=== PATIENT | male | born 1970 | race Caucasian/White ===

== ENCOUNTER 2019-03-30 07:06 | Outpatient (CLI) | payer OTHER, SELFPAY ==
[2019-03-30 07:32] LABS: HCT 45.6 % (40.0-50.0); HGB 15.6 g/dL (13.5-17.5); Mean Corp. HGB Concentration 34.2 g/dL (32.0-36.0); Mean Corpuscular Hemoglobin 31.8 pg (27.0-33.0); Mean Corpuscular Volume 92.9 fL (80-95); Mean Platelet Volume 11.4 fL (8.0-11.0); Platelet Count 259 x1000/uL (130-400); RBC 4.91 m/cumm (4.50-6.00); RBC Distribution Width 12.7 % (11.8-14.1); White Blood Cell Count 6.23 k/cumm (4.4-10.8)
[2019-03-30 08:13] LABS: ALT 77 U/L (16-63); AST 36 U/L (15-37); Albumin 3.6 g/dL (3.4-5.0); Alkaline Phosphatase 105 U/L (46-116); BUN 14 mg/dL (7-18); Bilirubin, Total 0.5 mg/dL (0.2-1.0); CREATININE 1.17 mg/dL (0.70-1.30); Calcium 8.8 mg/dL (8.5-10.1); Calculated LDL 138 mg/dL; Chloride 104 mmol/L (98-107); Cholesterol 219 mg/dL (50-200); Glucose 105 mg/dL (70-100); HDL Cholesterol 62 mg/dL (40-60); Potassium 4.4 mmol/L (3.5-5.1); Sodium 141 mmol/L (136-145); Triglyceride 97 mg/dL (30-150)
== END 2019-03-30 07:26 ==
PROVIDERS: PCP Nurse Practitioner; Visit Provider Nurse Practitioner
DX: E66.3 Overweight (principal); Z13.220 Encounter for screening for lipoid disorders; Z82.49 Family history of ischemic heart disease and other diseases of the circulatory system
CPT/HCPCS: 36415; 80053; 80061; 85027

== ENCOUNTER 2019-06-12 09:13 | Day surgery (SDC) | payer OTHER, SELFPAY ==
--- NOTE | 2019-06-12 06:51 | W.COLOREPORT ---
Date of service: 06/12/19 Time of Service: 10:25 Colonoscopy Report Date of procedure: 06/12/19 Pre-op diagnosis general: Colon CAncer Screening and Family history of colon cancer Post-op diagnosis procedure note: same Procedure: Colonoscopy Surgeon: Melody Salmeron Anesthesia proc note operative: other (General/ ASA 2/Jose Baron CRNA) Estimated blood loss (mL): 0 Pathology: none sent Complications: None Disposition: same day Indications: The patient is here for Colonoscopy pre-op. His last screening was 11 years ago, which was unremarkable. He reports a family history of colon cancer in his grandmother at the age of 50 and a cousin at the age of 38 whom is now . He has not had any bowel habit changes. -Discussed colonoscopy bowel prep as well as the procedure. Discussed possible complications of the procedure to include bleeding, pain, perforation, missed small lesion/polyp, sore throat, aspiration and adverse reaction to the medications. Questions were answered to patient?s satisfaction. No guarantees were implied or given. Prep: Miralax/Dulcolax Procedure Start Time: 10:25 Procedure End Time: 10:50 Retraction Time: 18 minutes Findings: Normal colon Procedure Description: After informed consent was obtained the patient was taken to the procedure room and placed in a left decubitous position. Monitors were applied and a time out was done. The patients name, date of , procedure, allergies to medications and metal in their body was reviewed. The patient was then sedated. Once sedated and comfortable a rectal exam was done. External exam was normal. Internal exam revealed a normal sphincter tone and no palpable masses. The prostate felt smooth. The scope was then introduced and retro-flexed. No internal hemorrhoids were identified. The scope was then advanced to the cecum without difficulty. The TI and appendiceal orifice were identified. The prep was adequate. The scope was then slowly retracted over 18 minutes back into the rectum. There were no polyps and no diverticula. The scope was removed and the patient was woken up and taken back to Same day surgery in stable condition. The patient tolerated the procedure well and there were no immediate complications. Follow up: The patient should follow up in 5 years unless they develop changes in bowel habits or other new gastrointestinal complaints.
--- NOTE | 2019-06-12 06:53 | W.PM.DSUDISC ---
Discharge Plan Disposition Patient Disposition: HOME Condition: Good Discharge Details Reason For Visit: Colon cancer Screening Attending Provider: Melody Salmeron Primary Care Provider: Kae Clifford Home Meds and New Rx's Prescriptions: Continued codeine-guaifenesin 10-100 mg/5 mL liquid 10 ml PO Q6H PRN (Reason: cough) Qty: 118 RF: 0 Discontinued polyethylene glycol 3350 17 gram/dose powder 238 g PO ONCE Qty: 238 RF: 0 bisacodyl [Dulcolax (bisacodyl)] 5 mg tablet,delayed release (DR/EC) 5 mg PO ONCE Qty: 4 RF: 0 Discharge Instructions Instructions: Colonoscopy (DC) Additional Instructions: Findings: Normal Follow up: 5 years Please call if you develop: fevers >101.5 Nausea or Vomiting Abdominal pain that is not transient DAY SURGERY UNIT POST ENDOSCOPY INSTRUCTIONS 1. Because there will be medication in your system for the next 24 hours, you may feel a little sleepy. Your coordination will be affected. Therefore: a. Do not drive or operate dangerous equipment for 24 hours. b. Do not drink alcohol beverages for 24 hours (not even beer). c. Plan to go home and rest for the day. 2. Generally there are no restrictions on your activity after a day or so has gone by, but you may feel a bit fatigued for a few days. 3 After you arrive home you may have a light meal and return to a normal diet as you can tolerate it without feeling sick to your stomach. 4. After surgery, you may feel pain or discomfort. This should be only transient, but if it persists please contact your doctor. 5. If there are any questions regarding the findings of your procedure, please feel free to contact your doctor. 6. If you are unable to contact your doctor with a problem, contact the hospital at [phone]. 7. Continue all your regular medications unless directed otherwise. I understand the above instructions and have no questions. Signature of Patient or Responsible Adult Escort Date/Time Name of Responsible Adult Escort Signature of Nurse Date/Time Activity:: Activity as Tolerated Diet:: As Tolerated Discharge Orders Discharge Orders: Discharge Order (Routine); Ordered 06/12/19 Ordered By: Melody Salmeron DS: Diagnosis Discharge Diagnosis (1) S/P colonoscopy: Status: Acute
[2019-06-12 09:27] VITALS: BP 122/77; PULSE 84; RESP 18; TEMP 36.1; O2SAT 99
[2019-06-12] MEDS: Lactated Ringers 1,000 ML 80 ML IV (09:49)
[2019-06-12 11:31] VITALS: BP 101/63; PULSE 97; RESP 18; TEMP 36.7; O2SAT 96
== END 2019-06-12 12:31 | disposition home or self-care (01) ==
LOC: SUR 09:14
PROVIDERS: PCP Nurse Practitioner; Visit Provider Surgery
PROC: 0DJD8ZZ Inspection of Lower Intestinal Tract, Via Natural or Artificial Opening Endoscopic (ICD-10-PCS; CPT 45378; principal; 2019-06-12 10:15)
DX: Z12.11 Encounter for screening for malignant neoplasm of colon (principal); Z80.0 Family history of malignant neoplasm of digestive organs
CPT/HCPCS: 45378

== ENCOUNTER 2020-07-04 02:02 | Outpatient (CLI) | payer OTHER, SELFPAY ==
[2020-07-05 14:41] LABS: COVID-19 RT-PCR UVMMC Result Negative (Negative)
== END 2020-07-04 02:22 ==
PROVIDERS: PCP Nurse Practitioner; Visit Provider Internal Medicine Cardiovascular Disease
DX: Z11.59 Encounter for screening for other viral diseases (principal); Z01.810 Encounter for preprocedural cardiovascular examination
CPT/HCPCS: U0003

== ENCOUNTER 2020-07-12 03:04 | Outpatient (CLI) | payer OTHER, SELFPAY ==
[2020-07-13 16:50] LABS: COVID-19 RT-PCR Result NEGATIVE (Negative)
== END 2020-07-12 03:24 ==
PROVIDERS: PCP Nurse Practitioner; Visit Provider Internal Medicine Cardiovascular Disease
DX: Z11.52 Encounter for screening for COVID-19 (principal); Z01.810 Encounter for preprocedural cardiovascular examination
CPT/HCPCS: U0003

== ENCOUNTER 2020-07-17 01:47 | Outpatient (CLI) | payer OTHER, SELFPAY ==
--- NOTE | 2020-07-17 09:00 | ETT_ITS ---
APPROVED REPORT Exam: Exercise Treadmill Patient Location: Out-Patient Room/Bed: Stress Nurse: Elise Rivera RN Ordering Provider:ONIEL GARCÍA, Contact Number: [phone] BMI: 29.96 Baseline Rhythm: Sinus Rhythm Indications: overweight, family h/o heart disease Medical History Medical History: obesity, impaired fasting glucose Cardiac Medications: None. Allergies: NKA Cardiac Risk Factors: family hx Previous Cardiac Procedures: None Pretest Chest Pain Characteristics: None Exercise History: Physically active Physical Disabilities: None Lung Sounds: Clear to auscultation Heart Sounds: Regular Stress Test Details Test: Exercise stress testing was performed using a Rommel protocol. Rest Stress HR Resting HR Supine: 72 bpm Max Heart Rate (APMHR): 170 bpm Resting HR Standin bpm Target HR (85% APMHR): 144 bpm Max HR Achieved: 182 bpm % of APMHR: 107 Recovery HR: 101 bpm HR response to stress: Normal HR response to stress BP Resting BP Supine: 146/90 mmHg Resting BP Standin/88 mmHg Max BP: 180/88 mmHg Recovery BP: 144/82 mmHg BP response to stress: Normal blood pressure response to stress. ECG Resting ECG: Sinus Rhythm Ectopy: None Stress ECG: Sinus Tachycardia ST Change: No significant ST segment changes noted Arrhythmia: Occasional PVCs Recovery ECG: Sinus Tachycardia, , Clear Recovery ST Change: No significant ST segment changes noted Recovery Arrhythmia: Increasing PVC buerden, trigemony, couplet, 3 beat run Clinical Reason for Termination: Fatigue Stress Symptoms: General Fatigue Exercise duration: 12 min41 sec Highest Stage Reached: Stage 5: 5.0 mph at 18% grade. Exercise capacity: 13.94 METs [place] Treadmill Score: 11.4 Rate Pressure Product: 14062 Stress ECG Conclusion 1. The resting electrocardiogram was normal 2. The patient exercised on the Rommel protocol and completed a workload of 13.94 METS, exercising 12 minutes and 41 seconds. There were no symptoms to suggest angina 3. Normal heart rate and blood pressure response to exercise. The patient achieved greater than 100% of predicted heart rate for age 4. There was no electrocardiographic evidence of myocardial ischemia with exercise 5. Occasional ventricular ectopic beats were seen [place] Treadmill Score is 11.4 which is Low risk. Stress Test Summary STAGE Time (mins) Speed (mph) Grade (%) HR BP SYMPTOMS METS Supine 72 146/90 Standing 72 142/88 1 3 1.7 10 98 144/90 4.6 2 6 2.5 12 119 156/88 7 3 9 3.4 14 143 162/86 10.2 4 12 4.2 16 174 12.9 1 min recovery 160 180/88 3 min recovery 114 174/86 6 min recovery 103 150/88 9 min recovery 103 144 82 12 min recovery 101
== END 2020-07-17 02:07 ==
PROVIDERS: PCP Nurse Practitioner; Visit Provider Internal Medicine Cardiovascular Disease
DX: E66.3 Overweight (principal); Z82.49 Family history of ischemic heart disease and other diseases of the circulatory system
CPT/HCPCS: 93017

== ENCOUNTER 2021-08-21 09:08 | Outpatient (CLI) | payer OTHER, SELFPAY ==
--- NOTE | 2021-08-21 09:00 | RT.EKG_ITS ---
APPROVED REPORT Exam: Resting ECG Reason for Exam: irregular heart rate Patient Location: O HR:64 bpm ECG Measurements Heart Rate 64 AXIS NC 156 P 60 QRSd 98 QRS -43 QT 378 T 31 QTc 392 Conclusion Sinus rhythm...normal P axis, V-rate 60- 99 Left axis
== END 2021-08-21 09:09 | disposition home or self-care (01) ==
LOC: DI.KIM 09:09
PROVIDERS: PCP Nurse Practitioner; Visit Provider Nurse Practitioner
DX: I49.9 Cardiac arrhythmia, unspecified (principal)
CPT/HCPCS: 93010

== ENCOUNTER 2021-08-25 01:36 | Outpatient (RCR) | payer OTHER, SELFPAY ==
--- NOTE | 2021-08-25 12:45 | HOLTER_ITS ---
APPROVED REPORT Conclusion This was a 48-hour Holter monitor ordered for an irregular heart rate Predominant rhythm was sinus. Average heart rate was 67. Minimum was 53, maximum 116 There were rare atrial premature beats. A total of 5 self-limited atrial runs occurred the longest o f which was 7 beats in duration There were rare to occasional ventricular ectopic beats There were 3 runs of nonsustained ventricular tachycardia, 3 beats, 4 beats and 7 beats in duration There was no atrial fibrillation, no high-grade AV block, no pauses greater than 3 seconds There were no apparent patient symptoms
== END 2021-08-25 23:59 | disposition home or self-care (01) ==
LOC: RT 01:36
PROVIDERS: PCP Nurse Practitioner; Visit Provider Nurse Practitioner
DX: I49.8 Other specified cardiac arrhythmias (principal)
CPT/HCPCS: 93225; 93226

== ENCOUNTER 2021-08-27 01:35 | Outpatient (CLI) | payer OTHER, SELFPAY ==
[2021-08-27 08:23] LABS: HCT 49.3 % (40.0-50.0); HGB 16.2 g/dL (13.5-17.5); MCH 31.2 pg (27.0-33.0); MCHC 32.9 % (32.0-36.0); MPV 11.8 fL (8.0-11.0); Platelet Count 266 10^3/uL (130-400); RBC 5.19 10^6/uL (4.36-5.78); RDW 11.9 % (11.8-14.1); RDW-SD 41.4 fL
[2021-08-27 08:38] LABS: Hemoglobin A1C 5.9 % (<5.7)
[2021-08-27 10:22] LABS: ALT 53 U/L (16-63); AST 20 U/L (15-37); Albumin 3.9 g/dL (3.4-5.0); Alkaline Phosphatase 94 U/L (46-116); Anion Gap 7.3 mmol/L (3-11); BUN 13 mg/dL (7-18); Bilirubin, Total 0.8 mg/dL (0.2-1.0); CO2 29.7 mmol/L (21.0-32.0); CREATININE 1.2 mg/dL (0.70-1.30); Calcium 9.2 mg/dL (8.5-10.1); Calculated LDL 131 mg/dL (<100); Chloride 105 mmol/L (98-107); Cholesterol 208 mg/dL (<200); Glucose 88 mg/dL (74-106); HDL Cholesterol 60 mg/dL (40-60); Potassium 4.5 mmol/L (3.5-5.1); Sodium 142 mmol/L (136-145); Total Protein 7.2 g/dL (6.4-8.2); Triglyceride 88 mg/dL (<150)
== END 2021-08-27 01:36 | disposition home or self-care (01) ==
LOC: LBO 01:36
PROVIDERS: PCP Nurse Practitioner; Visit Provider Nurse Practitioner
DX: R73.01 Impaired fasting glucose (principal); Z11.3 Encounter for screening for infections with a predominantly sexual mode of transmission; Z13.220 Encounter for screening for lipoid disorders; E11.9 Type 2 diabetes mellitus without complications
CPT/HCPCS: 36415; 80053; 80061; 85027; 83036

== ENCOUNTER 2021-10-01 01:00 | Outpatient (CLI) | payer OTHER, SELFPAY ==
--- NOTE | 2021-10-01 07:35 | DI.US_ITS ---
APPROVED REPORT EXAM: Comprehensive 2D, Doppler, and color-flow Echocardiogram Patient Location: Out-Patient Call Center Nurse: Dionna Alvarado RDCS (AE) Indications: Irregular HR on apple watch, Strong F/H CAD Other Information Study Quality: Good Conclusion Normal left ventricular wall thickness and chamber size. Estimated ejection fraction is 60%. Wall m otion is normal Normal right ventricular size and systolic function Both atria are normal in size There is no structural or hemodynamically significant valvular disease Wall motion Left Ventricle The left ventricle is normal size. The left ventricular systolic function is normal. The left ventric ular ejection fraction is within the normal range. There is normal left ventricular wall thickness. T here is normal LV segmental wall motion. There is no ventricular septal defect visualized. LVEF is 60 %. Right Ventricle The right ventricle is normal size. The right ventricular systolic function is normal. Atria The left atrium size is normal. The right atrium size is normal. The interatrial septum is intact wit h no evidence for an atrial septal defect. Aortic Valve The aortic valve is normal in structure. There is no aortic valvular stenosis. Trivial aortic regurgi tation. Mitral Valve The mitral valve is normal in structure. No evidence of mitral valve stenosis. Trace to mild mitral r egurgitation. Tricuspid Valve The tricuspid valve is normal in structure. There is no tricuspid valve stenosis. Trace tricuspid reg urgitation. Unable to assess PA pressure. Pulmonic Valve The pulmonary valve is normal in structure. There is no pulmonic valvular stenosis. Trivial pulmonic regurgitation. Great Vessels The aortic root is normal in size. The ascending aorta is normal in size. Ascending aorta is normal i n caliber. IVC is normal in size and collapses >50% with inspiration. Pericardium There is no pericardial effusion. 2D Dimensions IVSD d PLAX 0.98 cm M: 0.6-1.2 LV Vol A2C d MOD 85.5 mL LVPW d PLAX 0.98 cm M: 0.6 - 1.2 LV Vol A4C d MOD 97.4 mL LVID d PLAX 4.35 cm M: 4.2 - 5.8 LA Area A4C s MOD 18.42 cm2 LVDs 2.85 cm M: 2.5 - 4.0 LA Area A2C s MOD 16.26 cm2 Ao Root d 3.15 cm M: 3.1 - 3.7 LV EF A4C MOD 60.9 % RA Area A4C 17.58 cm2 LV EF A2C MOD 60.6 % Ao Asc Diam d 3.35 cm M: 2.6 - 3.4 LV EF Biplane MOD 60.7 % LV EF Teichholz 62.6 % SV 56.51 mL LVEF (Lugo's) 60.73 % M: 52 - 72 LV Volume 93.06 mL M: 62 - 150 LV Vol Biplane MOD 93.1 mL FS 33.55 % M-Mode TAPSE 2.55 cm (M/F) >1.7 LV Diastology MV E' medial 0.115 (>0.07 m/s) E/A Ratio 0.9 LV E/e MED 5.10 (<14) MV E Vmax 0.59 (0.4-1.3 m/s) MV E' lateral 0.136 (>0.1 m/s) MV A Vmax 0.65 (0.4-1.3 m/s) LV E/e LAT 4.30 (<14) MV E/A Ratio 0.87 MV E/E' medial 5.12 MV E/E' lateral 4.34 Aortic Valve LVOT Area 3.18 cm2 AoV Area Vmax 2.85 cm2 LVOT Vmax 1.14 m/s SAHARA Mean Gera. 2.57 cm2 LVOT Mean Gera. 0.71 m/s LVOT Peak Grad 5.2 mmHg LVOT Mean Grad 2.5 mmHg LVOT VTI 0.242 m LVOT Diam s 2.00 cm AoV Vmax 1.27 m/s Velocity Ratio 0.89 AoV Mean Gera. 0.88 m/s AoV Peak Grad 6.5 mmHg LVOT SV 76.80 mL AoV Mean Grad 3.5 mmHg AoV VTI 0.254 m AoV Area VTI 3.02 cm2 Mitral Valve MV DT 271 (160-240 msec) MV PHT 79 msec MV Area PHT 2.80 cm2 MV VTI 0.217 m MV Area VTI 3.53 (4.0-6.0 cm2) Pulmonary Valve PV Vmax 1.04 (0.5-1.5 m/s) RVOT Peak Gr. 1.39 mmHg PV Peak Grad 4.4 mmHg RVOT Mean Gr. 0.70 mmHg PV Mean Grad 2.0 mmHg RVOT VTI 0.114 m PV VTI 0.180 m RVOT Vmax 0.59 m/s
== END 2021-10-01 01:20 ==
PROVIDERS: PCP Nurse Practitioner; Visit Provider Nurse Practitioner
DX: I49.9 Cardiac arrhythmia, unspecified (principal)
CPT/HCPCS: 93306

== ENCOUNTER 2022-01-12 02:28 | Outpatient (CLI) | payer OTHER, SELFPAY ==
[2022-01-12 14:37] LABS: Calculated LDL 126 mg/dL (<100); Cholesterol 213 mg/dL (<200); HDL Cholesterol 66 mg/dL (40-60); Triglyceride 108 mg/dL (<150)
[2022-01-12 14:58] LABS: Vitamin D 25 Total 27.6 ng/mL (30-100)
== END 2022-01-12 02:29 | disposition home or self-care (01) ==
PROVIDERS: PCP Nurse Practitioner; Visit Provider Nurse Practitioner
DX: E78.5 Hyperlipidemia, unspecified (principal); E55.9 Vitamin D deficiency, unspecified
CPT/HCPCS: 36415; 80061; 82306

== ENCOUNTER 2022-05-15 01:11 | Outpatient (CLI) | payer OTHER, SELFPAY ==
[2022-05-15 07:54] LABS: Calculated LDL 107 mg/dL (<100); Cholesterol 176 mg/dL (<200); HDL Cholesterol 55 mg/dL (40-60); Triglyceride 71 mg/dL (<150)
== END 2022-05-15 01:12 | disposition home or self-care (01) ==
LOC: LBO 01:12
PROVIDERS: PCP Nurse Practitioner; Visit Provider Nurse Practitioner
DX: E78.2 Mixed hyperlipidemia (principal)
CPT/HCPCS: 36415; 80061

== ENCOUNTER 2022-08-05 04:07 | Outpatient (CLI) | payer OTHER, SELFPAY ==
[2022-08-05 14:07] LABS: GGT 204 U/L (15-85)
== END 2022-08-05 04:08 | disposition home or self-care (01) ==
LOC: LBO 04:07
PROVIDERS: PCP Nurse Practitioner; Visit Provider Nurse Practitioner
DX: R79.9 Abnormal finding of blood chemistry, unspecified (principal)
CPT/HCPCS: 36415; 82977

== ENCOUNTER 2022-11-11 03:24 | Outpatient (CLI) | payer OTHER, SELFPAY ==
[2022-11-11 09:21] LABS: GGT 188 U/L (15-85)
== END 2022-11-11 03:25 | disposition home or self-care (01) ==
LOC: LBO 03:24
PROVIDERS: PCP Nurse Practitioner; Referring Provider Nurse Practitioner; Visit Provider Nurse Practitioner
DX: R74.8 Abnormal levels of other serum enzymes (principal)
CPT/HCPCS: 36415; 82977

== ENCOUNTER 2024-04-19 03:37 | Outpatient (CLI) | payer OTHER, SELFPAY ==
[2024-04-19 07:51] LABS: Hemoglobin A1C 5.4 % (<5.7)
[2024-04-19 09:01] LABS: ALT 50 U/L (16-63); AST 31 U/L (15-37); Albumin 3.7 g/dL (3.4-5.0); Alkaline Phosphatase 99 U/L (46-116); Anion Gap 7.4 mmol/L (3-11); BUN 14 mg/dL (7-18); Bilirubin, Total 0.77 mg/dL (0.2-1.0); CO2 28.6 mmol/L (21.0-32.0); CREATININE 1.2 mg/dL (0.70-1.30); Calcium 9.2 mg/dL (8.5-10.1); Calculated LDL 63 mg/dL (<100); Chloride 107 mmol/L (98-107); Cholesterol 137 mg/dL (<200); Estimated GFR 72.31 (mL/min/1.73m2); Glucose 92 mg/dL (74-106); HDL Cholesterol 61 mg/dL (40-60); Potassium 3.9 mmol/L (3.5-5.1); Sodium 143 mmol/L (136-145); Triglyceride 69 mg/dL (<150); Vitamin D 25 Total 19.4 ng/mL (30-100)
[2024-04-19 09:06] LABS: GGT 234 U/L (15-85)
== END 2024-04-19 03:38 | disposition home or self-care (01) ==
LOC: LBO 03:38
PROVIDERS: PCP Nurse Practitioner; Visit Provider Nurse Practitioner
DX: E78.2 Mixed hyperlipidemia (principal); I10 Essential (primary) hypertension; R73.01 Impaired fasting glucose; E55.9 Vitamin D deficiency, unspecified; R74.8 Abnormal levels of other serum enzymes
CPT/HCPCS: 36415; 80053; 80061; 82306; 82977; 83036

== ENCOUNTER 2024-04-25 09:46 | Outpatient (CLI) | payer OTHER, SELFPAY ==
--- NOTE | 2024-04-25 09:45 | RT.EKG_ITS ---
APPROVED REPORT Exam: Resting ECG Reason for Exam: asymptomatic bradycardia Patient Location: O HR:69 bpm ECG Measurements Heart Rate 69 AXIS ME 157 P 43 QRSd 100 QRS -42 QT 385 T 24 QTc 413 Conclusion Sinus rhythm...normal P axis, V-rate 50- 99 Late transition
== END 2024-04-25 09:47 | disposition home or self-care (01) ==
LOC: DI.KIM 09:46
PROVIDERS: PCP Nurse Practitioner; Visit Provider Nurse Practitioner
DX: R00.1 Bradycardia, unspecified (principal)
CPT/HCPCS: 93010